=== PATIENT | male | born 1995 | race Two or more races ===

== ENCOUNTER 2017-12-13 19:50 | Emergency (ER) | payer OTHER ==
[2017-12-13 20:29] LABS: PLATELET COUNT 255 10^3/uL (150-400)
[2017-12-13] MEDS ORDERED: NS 1,000 ML IV ONE ×2 (20:31→21:53)
[2017-12-13] MEDS ORDERED: DICYCLOMINE 10 MG CAP PO ONE (20:31)
--- NOTE | 2017-12-13 20:31 | EDPHY ---
General Time Seen by Provider: 12/13/17 20:25 Narrative: CHIEF COMPLAINT: Diarrhea, chills HISTORY OF PRESENT ILLNESS: Patient complains of sudden onset of diarrhea Wednesday evening. Approximately 10 episodes per day. It is described as watery, green and brown. He has been taking Pepto-Bismol with minimal improvement. He has no bright red blood in the diarrhea. He has no dark tarry stools. He has nausea but no vomiting. After Wednesday evening it progressed to chills but no fever. He has no chest pain or shortness of breath. He has lower and central abdominal pain that is persistent and mild. No back pain. No urinary complaints. He says he was in [place] on Wednesday and thinks that may have been related to the food he ate late at night. No other associated complaints or modifying factors. REVIEW OF SYSTEMS: Ten systems reviewed and are negative unless otherwise noted in the HPI PCP: [facility] SPECIALISTS: None PAST MEDICAL HISTORY: Denies any medical diagnoses PAST SURGICAL HISTORY: No surgical history. SOCIAL HISTORY: Nonsmoker. Occasional alcohol. No drug use. Lives here in [place]. Works at [employer] FAMILY HISTORY: Noncontributory EXAMINATION General Appearance: Alert, no distress Head: normocephalic, atraumatic Eyes: Pupils equal and round, no conjunctival pallor or injection ENT, Mouth: Mucous membranes moist. Uvula midline. Airway is widely patent Neck: Normal inspection, supple, non-tender Respiratory: Lungs are clear to auscultation. No wheezing rhonchi or crackles Cardiovascular: Tachycardic rate. Rate rhythm. No murmur. Gastrointestinal: Abdomen is soft and nondistended. There is mild periumbilical tenderness. Bowel sounds are symmetric all 4 quadrants. No rebound. No tympany. No guarding. No CVA tenderness Back: non-tender, no bony abnormalities Neurological: A&O, nonfocal, normal gait Skin: Warm and dry, no rash no petechiae or purpura Extremities: Nontender, no pedal edema Psychiatric: Mood and affect normal DIFFERENTIAL DIAGNOSES: Including but not limited to colitis, enteritis, food-borne illness, dehydration , C difficile colitis, diverticulitis MDM: 8:30 p.m. Diarrhea of 2 days duration. Nonbloody, and tolerating liquids by mouth without vomiting. No profuse watery diarrhea at this time. No improvement with Pepto-Bismol. His abdominal exam is benign. He is very mildly tachycardic , thus I have ordered IV fluid. Laboratory studies have been ordered and are pending. I do not feel he needs emergent CT scan or ultrasound at this time. He has no right upper quadrant tenderness. No epigastric tenderness. His bowel sounds are symmetric in all 4 quadrants. He is resting comfortably in no acute distress. 9:45 p.m. CBC chemistry unremarkable. He received IV fluid 1 L. He has received 20 mg of Bentyl. I have re-evaluated the patient at this time. He said he is starting to feel little bit better. No vomiting. No further diarrhea. His urine has been provided and appears concentrated, thus I will order another L of IV fluid and monitor. 10:45 p.m. Patient re-evaluated. He has finished his 2nd L of IV fluid. He is feeling significantly better than time arrival. No vomiting. No diarrhea. No abdominal pain at this time. He is asking to be discharged home. I do feel he is stable for discharge home. Suspect viral or traveler's diarrhea. He has no leukocytosis or fever. No bloody diarrhea. I do not feel he warrants any antibiotics for this. He does have a borderline urinalysis. He has no urinary complaints of any kind, thus I will delay therapy and order a urine culture. He will be contacted if this returns positive. He is comfortable this plan as well. He will contact his established [facility] physician tomorrow morning. He will return to emergency department as advise if needed. SUPERVISION: Patient was independently examined, but I discussed the case with my secondary supervising physician Dr. Calix. - History Smoking Status: Never smoked - Objective Vital Signs: Initial Vital Signs Temperature (C) 99.1 F 12/13/17 19:56 Heart Rate 103 H 12/13/17 19:56 Respiratory Rate 17 12/13/17 19:56 Blood Pressure 136/82 H 12/13/17 19:56 O2 Sat (%) 95 12/13/17 19:56 O2 Delivery Mode Room Air Allergies/Adverse Reactions: No Known Allergies Allergy (Unverified 12/13/17 19:59) Home Medications: Medication Instructions Recorded Ondansetron Odt [Zofran Odt 4 mg 4 mg PO Q6 PRN #7 tab 12/13/17 (*)] Laboratory Results: Laboratory Results 12/13/17 20:05 12/13/17 20:05 12/13/17 12/13/17 12/13/17 21:55 20:05 20:05 WBC 7.66 10^3/uL 10^3/uL (3.80-9.50) RBC 6.08 10^6/uL 10^6/uL (4.40-6.38) Hgb 17.5 g/dL g/dL (13.7-17.5) Hct 52.2 % H % (40.0-51.0) MCV 85.9 fL fL (81.5-99.8) MCH 28.8 pg pg (27.9-34.1) MCHC 33.5 g/dL g/dL (32.4-36.7) RDW 13.5 % % (11.5-15.2) Plt Count 255 10^3/uL 10^3/uL (150-400) MPV 9.0 fL fL (8.7-11.7) Neut % (Auto) 75.2 % H % (39.3-74.2) Lymph % (Auto) 13.6 % L % (15.0-45.0) [place] % (Auto) 10.3 % % (4.5-13.0) Eos % (Auto) 0.0 % L % (0.6-7.6) Baso % (Auto) 0.4 % % (0.3-1.7) Nucleat RBC Rel Count 0.0 % % (0.0-0.2) Absolute Neuts (auto) 5.76 10^3/uL 10^3/uL (1.70-6.50) Absolute Lymphs (auto) 1.04 10^3/uL 10^3/uL (1.00-3.00) Absolute Monos (auto) 0.79 10^3/uL 10^3/uL (0.30-0.80) Absolute Eos (auto) 0.00 10^3/uL L 10^3/uL (0.03-0.40) Absolute Basos (auto) 0.03 10^3/uL 10^3/uL (0.02-0.10) Absolute Nucleated RBC 0.00 10^3/uL 10^3/uL (0-0.01) Immature Gran % 0.5 % % (0.0-1.1) Immature Gran # 0.04 10^3/uL 10^3/uL (0.00-0.10) Sodium 139 mEq/L mEq/L (135-145) Potassium 4.0 mEq/L mEq/L (3.5-5.2) Chloride 99 mEq/L mEq/L (97-110) Carbon Dioxide 24 mEq/l mEq/l (22-31) Anion Gap 16 mEq/L mEq/L (8-16) BUN 13 mg/dL mg/dL (7-23) Creatinine 1.1 mg/dL mg/dL (0.7-1.3) Estimated GFR > 60 Glucose 86 mg/dL mg/dL (70-100) Calcium 9.6 mg/dL mg/dL (8.5-10.4) Total Bilirubin 0.9 mg/dL mg/dL (0.1-1.4) Conjugated Bilirubin 0.5 mg/dL mg/dL (0.0-0.5) Unconjugated Bilirubin 0.4 mg/dL mg/dL (0.0-1.1) AST 30 IU/L IU/L (17-59) ALT 56 IU/L IU/L (21-72) Alkaline Phosphatase 71 IU/L IU/L (38-126) Total Protein 8.1 g/dL g/dL (6.3-8.2) Albumin 4.5 g/dL g/dL (3.5-5.0) Lipase 72 IU/L IU/L (23-300) Urine Color YELLOW Urine Appearance MODERATELY TURBID Urine pH 5.0 (5.0-7.5) Ur Specific [place] 1.021 (1.002-1.030) Urine Protein NEGATIVE (NEGATIVE) Urine Ketones NEGATIVE (NEGATIVE) Urine Blood NEGATIVE (NEGATIVE) Urine Nitrate NEGATIVE (NEGATIVE) Urine Bilirubin NEGATIVE (NEGATIVE) Urine Urobilinogen NEGATIVE EU EU (0.2-1.0) Ur Leukocyte Esterase 1+ H (NEGATIVE) Urine RBC 1-3 /hpf /hpf (0-3) Urine WBC 15-25 /hpf H /hpf (0-3) Ur Epithelial Cells TRACE /lpf /lpf (NONE-1+) Urine Mucus TRACE /lpf /lpf (NONE-1+) Urine Glucose NEGATIVE (NEGATIVE) Medications Given: Discontinued Medications Dicyclomine HCl (Bentyl) 20 mg PO EDNOW ONE Stop: 12/13/17 20:32 Last Admin: 12/13/17 20:42 Dose: 20 mg Sodium Chloride (Ns) 1,000 mls @ 0 mls/hr IV EDNOW ONE; Wide Open PRN Reason: Protocol Stop: 12/13/17 20:32 Last Admin: 12/13/17 20:42 Dose: 1,000 mls Sodium Chloride (Ns) 1,000 mls @ 0 mls/hr IV EDNOW ONE; Wide Open PRN Reason: Protocol Stop: 12/13/17 21:54 Last Admin: 12/13/17 21:55 Dose: 1,000 mls Departure - Departure Disposition: Home, Routine, Self-Care Clinical Impression: Acute diarrhea Condition: Good Instructions: Loperamide (By mouth), Traveler's Diarrhea (ED) Additional Instructions: 1. Increase fluid intake 2. Maalox [id number] as needed 3. I have ordered a urine culture as the urinalysis was equivocal. We will contact you if this returns positive 4. Contact established primary care physician at [facility] tomorrow morning for outpatient follow-up 5. ED precautions as discussed Referrals: [facility] ,. [Edm Groups for Call Sched] - As per Instructions Stand Alone Forms: Work Excuse Prescriptions: Ondansetron Odt [Zofran Odt 4 mg (*)] 4 mg PO Q6 PRN #7 tab PRN Reason: Nausea/Vomiting, Use 1st
[2017-12-13 21:57] VITALS: BP 124/69
== END 2017-12-13 22:57 | disposition home or self-care (01) ==
DX: R19.7 Diarrhea, unspecified (principal); E86.9 Volume depletion, unspecified